=== PATIENT | male | born 1955 | race Caucasian/White ===

== ENCOUNTER → 2016-11-21 | Outpatient (CLI) | payer BC ==
[~2016-11-21] MED LIST: 00186-0370-20 IH; ALPRAZOLAM0.25 MG PO; AMOXICILLIN 50500 MG PO; ANDROGEL1.62% TP; ASPIRIN E.C. 8181 MG PO; BIAXIN500 MG PO; CARAFATE 1GM1 G PO; COZAAR 50MG50 MG/TAB PO; HCTZ 25MG TAB25 MG PO; HCTZ 25MG25 MG PO; LISINOPRIL10 MG PO; NEXIUM 40MG40 MG PO; NORCO 325 MG-51 TAB PO; NUVIGIL150 MG PO; PROTONIX 40MG T40 MG PO; PROVENTIL0.09 MG/A1 IH; SINGULAIR 110 MG/TAB PO; ZESTRIL 10MG10 MG PO; ZOFRAN 4MG T4 MG/TAB PO; [UNRECOGNIZED DRUG - OTHER] OU
== END ==
LOC: COL.RAD 13:12
DX: M25.511 Pain in right shoulder (principal)
CPT/HCPCS: J3301; Q9967

== ENCOUNTER → 2021-04-19 | Outpatient (CLI) | payer MEDICARE, BC ==
[~2021-04-19] MED LIST changes: +ALBUTEROL0.83 MG/ML IH; -ALPRAZOLAM0.25 MG PO; +EFFEXOR 75M75 MG/TAB PO; +MEGARED ADVANC1 EAC1 PO; +ONE-A-DAY MEN'S1 TAB PO; +PREDNISONE 5MG5 MG PO; +PROVIGIL200 MG PO
== END ==
LOC: COL.RAD 12:31
DX: M50.30 Other cervical disc degeneration, unspecified cervical region (principal); L29.8 Other pruritus
CPT/HCPCS: Q9967